=== PATIENT | female | born 1990 | race Caucasian/White ===

== ENCOUNTER 2016-12-04 17:21 | Emergency (ER) | payer OTHER ==
[~2016-12-04] VITALS: Wt 79.4 kg
[~2016-12-04 17:21] MED LIST: AMOXIL500 MG PO; CIPRO250 MG PO; CIPRODEX 0.3%-7.5 ML OT; CORTISPORIN 1%-10 M1 OT; MOTRIN800 MG PO; NKHM; PEN-VEE K250 MG; PRENATAL1 TA1 PO; VICODIN 5/500 505 MG; VICODIN 5/500 505 MG PO; WYMOX500 MG PO; ZOFRAN ODT4 MG SL; ZOFRAN4 MG PO
[2016-12-04] MEDS ORDERED: VYVANSE40 MG PO (17:39)
[2016-12-04] MEDS ORDERED: CYCLOBENZAPRINE5 M3 PO (19:35)
[2016-12-04] MEDS ORDERED: KETOROLAC10 MG PO (19:35)
== END 2016-12-04 19:57 | disposition home or self-care (01) ==
LOC: ED 17:21
DX: S39.012A Strain of muscle, fascia and tendon of lower back, initial encounter (principal); F17.200 Nicotine dependence, unspecified, uncomplicated; W27.8XXA Contact with other nonpowered hand tool, initial encounter; Y93.89 Activity, other specified; Y92.9 Unspecified place or not applicable; Y99.9 Unspecified external cause status

== ENCOUNTER 2018-05-05 07:31 | Emergency (ER) | payer OTHER ==
[~2018-05-05] VITALS: Ht 175.2 cm; Wt 81.6 kg
[~2018-05-05 07:31] MED LIST changes: +CYCLOBENZAPRINE5 M3 PO; +KETOROLAC10 MG PO; +VYVANSE40 MG PO
[2018-05-05 07:50] LABS: BASO # 0.1 10*3/uL (0.0-0.1); BASO % 0.8 % (0.0-1.0); EOS # 0.4 10*3/uL (0.0-0.4); EOS % 4.4 % (1.0-4.0); HEMATOCRIT 41.5 % (37.0-47.0); HEMOGLOBIN 14.2 g/dl (12.0-16.0); LYMPH # 1.9 10*3/uL (1.3-4.4); LYMPH % 21.2 % (27.0-41.0); MEAN CELL VOLUME 87.4 fl (81.0-99.0); MEAN CORPUSCULAR HGB 29.9 pg (27.0-31.0); MEAN CORPUSCULAR HGB CONC 34.2 g/dl (33.0-37.0); MEAN PLATELET VOLUME 10.1 fl (9.6-12.3); MONO # 0.8 10*3/uL (0.1-1.0); MONO % 9.2 % (3.0-9.0); NEUT # 5.8 10*3/uL (2.3-7.9); NEUT % 64.3 % (47.0-73.0); PLATELET COUNT AUTOMATED 236 10*3/uL (130-400); RED BLOOD COUNT 4.75 10*6/uL (4.10-5.10); RED CELL DISTRI WIDTH 12.6 % (0-14.5); WHITE BLOOD COUNT 9.1 10*3/uL (4.8-10.8)
[2018-05-05 08:05] LABS: BILIRUBIN NEGATIVE (NEGATIVE); BLOOD 3+ (NEGATIVE); CLARITY CLOUDY (CLEAR); COLOR YELLOW (YELLOW); GLUCOSE NEGATIVE (NEGATIVE); KETONE NEGATIVE (NEGATIVE); LEUKO ESTERASE 2+ (NEGATIVE); NITRITE NEGATIVE (NEGATIVE); PH 6.5 (5.0-9.0); UROBILINOGEN 0.2 E.U./dl (0.2-1.0)
[2018-05-05 08:12] LABS: ALBUMIN 3.5 gm/dl (3.1-4.5); ALKALINE PHOSPHATASE 71 U/L (45-117); BUN 6 mg/dl (7-24); CHLORIDE 110 mmol/L (98-107); CREATININE 0.76 mg/dL (0.55-1.02); POTASSIUM 3.5 mmol/L (3.5-5.1); SGOT/AST 19 IU/L (3-35); SGPT/ALT 42 U/L (12-78); SODIUM 142 mmol/L (136-145)
[2018-05-05 08:31] LABS: BACTERIA 3+; EPITHELIAL CELLS 15-20; RBC 16-20 rbc/hpf (0-2); WBC 21-30 wbc/hpf (0-5)
[2018-05-05] MEDS ORDERED: IBU800 MG PO (08:33)
== END 2018-05-05 10:10 | disposition home or self-care (01) ==
LOC: ED 07:31
PROVIDERS: Emergency Medicine
DX: E86.0 Dehydration (principal); R11.2 Nausea with vomiting, unspecified; M54.5 Low back pain; R19.7 Diarrhea, unspecified; F17.200 Nicotine dependence, unspecified, uncomplicated; Z79.899 Other long term (current) drug therapy

== ENCOUNTER 2019-01-25 15:21 | Emergency (ER) | payer SELFPAY ==
[~2019-01-25] VITALS: Ht 175.2 cm; Wt 81.6 kg
[~2019-01-25 15:21] MED LIST changes: +IBU800 MG PO
[2019-01-25] MEDS ORDERED: NAPROSYN500 MG PO (16:49)
== END 2019-01-25 17:03 | disposition home or self-care (01) ==
LOC: ED 15:21
DX: M25.551 Pain in right hip (principal); F17.200 Nicotine dependence, unspecified, uncomplicated; X58.XXXA Exposure to other specified factors, initial encounter; Y93.02 Activity, running; Y92.89 Other specified places as the place of occurrence of the external cause; Y99.8 Other external cause status

== ENCOUNTER 2019-04-18 21:14 | Emergency (ER) | payer OTHER ==
[~2019-04-18] VITALS: Ht 175.2 cm; Wt 80.7 kg
[~2019-04-18 21:14] MED LIST changes: +NAPROSYN500 MG PO
[2019-04-18] MEDS ORDERED: PREDNISONE20 M1 PO (21:29)
[2019-04-18] MEDS ORDERED: ZITHROMAX250 MG PO (21:29)
== END 2019-04-18 22:01 | disposition home or self-care (01) ==
LOC: ED 21:14
DX: J45.909 Unspecified asthma, uncomplicated (principal); F17.200 Nicotine dependence, unspecified, uncomplicated; Z79.899 Other long term (current) drug therapy

== ENCOUNTER → 2019-08-26 | Outpatient (CLI) | payer OTHER ==
[~2019-08-26] MED LIST changes: +PREDNISONE20 M1 PO; +ZITHROMAX250 MG PO
== END | disposition home or self-care (01) ==
LOC: RAD 19:38
DX: M54.5 Low back pain (principal); M54.9 Dorsalgia, unspecified; G89.29 Other chronic pain

== ENCOUNTER 2019-10-12 22:19 | Emergency (ER) | payer OTHER ==
[~2019-10-12] VITALS: Wt 78.9 kg
[2019-10-13 00:01] LABS: BASO # 0.1 10*3/uL (0.0-0.1); BASO % 0.8 % (0.0-1.0); EOS # 0.6 10*3/uL (0.0-0.4); EOS % 4.5 % (1.0-4.0); HEMATOCRIT 42.9 % (37.0-47.0); HEMOGLOBIN 14.3 g/dl (12.0-16.0); LYMPH # 2.8 10*3/uL (1.3-4.4); LYMPH % 22.5 % (27.0-41.0); MEAN CELL VOLUME 90.3 fl (81.0-99.0); MEAN CORPUSCULAR HGB 30.1 pg (27.0-31.0); MEAN CORPUSCULAR HGB CONC 33.3 g/dl (33.0-37.0); MEAN PLATELET VOLUME 10.1 fl (9.6-12.3); MONO % 7.7 % (3.0-9.0); NEUT % 64.1 % (47.0-73.0); PLATELET COUNT AUTOMATED 249 10*3/uL (130-400); RED BLOOD COUNT 4.75 10*6/uL (4.10-5.10); WHITE BLOOD COUNT 12.5 10*3/uL (4.8-10.8)
[2019-10-13] MEDS ORDERED: ALYACEN 1-35-21 EACH PO (00:23)
== END 2019-10-13 00:45 | disposition home or self-care (01) ==
LOC: ED 22:19
PROVIDERS: Emergency Medicine
DX: N93.8 Other specified abnormal uterine and vaginal bleeding (principal); F17.200 Nicotine dependence, unspecified, uncomplicated

== ENCOUNTER 2020-03-05 17:53 | Emergency (ER) | payer OTHER ==
[~2020-03-05] VITALS: Wt 83.9 kg
[~2020-03-05 17:53] MED LIST changes: +ALYACEN 1-35-21 EACH PO
== END 2020-03-05 18:16 | disposition home or self-care (01) ==
LOC: ED 17:53
DX: S39.012A Strain of muscle, fascia and tendon of lower back, initial encounter (principal); Z79.899 Other long term (current) drug therapy; X58.XXXA Exposure to other specified factors, initial encounter; Y93.89 Activity, other specified; Y92.89 Other specified places as the place of occurrence of the external cause; Y99.8 Other external cause status

== ENCOUNTER → 2020-07-20 | Outpatient (CLI) | payer OTHER | END | disposition home or self-care (01) | LOC: COVID19 13:55 | PROVIDERS: ATTEND Nurse Practitioner Primary Care | DX: R05 Cough (principal); J02.9 Acute pharyngitis, unspecified; R53.83 Other fatigue; Z20.822 Contact with and (suspected) exposure to COVID-19 ==

== ENCOUNTER → 2021-05-04 | Outpatient (CLI) | payer OTHER | END | disposition home or self-care (01) | LOC: RAD 11:00 | PROVIDERS: ATTEND Nurse Practitioner Primary Care | DX: G89.29 Other chronic pain (principal); M54.50 Low back pain, unspecified; M25.559 Pain in unspecified hip ==